=== PATIENT | male | born 1975 | race African-American/Black ===

== ENCOUNTER 2019-12-09 00:57 | Emergency (ER) | payer OTHER, SELFPAY ==
--- NOTE | ~2019-12-09 | CT_ITS ---
EXAMINATION: CT abdomen pelvis w con DATE: 12/09/2019 04:48 INDICATION: Left upper quadrant abdominal pain. Vomiting. TECHNIQUE: Computed tomography (CT) of the abdomen and pelvis was performed with 100 mL Omnipaque 350 intravenous contrast. Automated exposure control and iterative reconstruction technique were employe d. The dose-length product was 482.89 mGy-cm. COMPARISON: CT abdomen 03/04/2006 FINDINGS: The visualized portions of the lung bases demonstrate patchy airspace and groundglass opaci ties in the lower lobes and patchy groundglass opacities in right middle lobe and lingula. There are pneumatoceles in the lower lobes. No pleural effusion. The heart size is normal. There are coronary a rtery calcifications. No pericardial effusion. The liver, gallbladder, spleen, pancreas, adrenal glan ds, and kidneys are normal. There are no dilated loops of bowel. The appendix is normal. There are no pathologically enlarged lymph nodes. There is no free intraperitoneal fluid. The bones are unremarka ble. IMPRESSION: 1. Opacities in the inferior lungs, which may be atelectasis or atypical pneumonia such as COVID-19 p neumonia. Reviewed, dictated and finalized at location A. IMPRESSION: 1. Opacities in the inferior lungs, which may be atelectasis or atypical pneumo ana such as COVID-19 pneumonia.
[2019-12-09 01:03] VITALS: BP 128/92; PULSE 95; RESP 20; TEMP 36.5; O2SAT 96
[2019-12-09 02:20] VITALS: BP 148/82; PULSE 93; RESP 22; O2SAT 100
--- NOTE | 2019-12-09 02:54 | ED.NAVMDI ---
HPI - Nausea/Vomiting/Diarrhea General Chief complaint: Nausea/Vomiting/Diarrhea Stated complaint: N/V, WEAK Time Seen by Provider: 12/09/19 02:46 History of Present Illness HPI Narrative: Patient presents with his for 3 days of upper left abdominal pain nausea and vomiting. He has had chills but no documented fever. He has been unable to hold his medicines down including the antibiotics for his right great toe infection. He has type 2 diabetes and has not had DKA. 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 He has never had pancreatitis. He has no diarrhea. MD elicited complaint: nausea and vomiting Onset (ago): day(s) Description of vomiting: food contents Associated nausea: Yes Associated abdominal pain: Yes Related Data Home Medications Medication Instructions Recorded Confirmed aspirin 81 mg tablet,delayed 81 mg PO DAILY 06/27/19 release gabapentin 300 mg capsule 300 mg PO BID 06/27/19 losartan 25 mg tablet 25 mg PO DAILY 06/27/19 simvastatin 10 mg tablet 10 mg PO DAILY 06/27/19 hydrocodone 5 mg-acetaminophen 325 See Rx Instructions .ROUTE .COMPLEX 07/06/19 mg tablet cholecalciferol (vitamin D3) 1,250 See Rx Instructions PO .COMPLEX 10/24/19 mcg (50,000 unit) capsule linagliptin 5 mg tablet See Rx Instructions .ROUTE .COMPLEX 10/24/19 metformin 500 mg tablet See Rx Instructions .ROUTE .COMPLEX 10/24/19 Allergies Allergy/AdvReac Type Severity Reaction Status Date / Time No Known Allergies Allergy Verified 12/09/19 01:05 Review of Systems Review of Systems: Narrative: CONSTITUTIONAL: Denies fever, but has had chills. EYES: Denies visual changes, redness, or discharge. ENT: Denies rhinorrhea, congestion, sore throat, or otalgia. CARDIOVASCULAR: Denies chest pain, palpitations, or edema. RESPIRATORY: Denies cough or dyspnea. GASTROINTESTINAL: He has abdominal pain, nausea, vomiting, but not diarrhea. GENITOURINARY: Denies dysuria or hematuria. SKIN: Denies rash or itching. MUSCULOSKELETAL: Denies back pain, joint pain, or myalgia. He has a toe infection on the right great toe. NEUROLOGIC: Denies headache, numbness, or weakness. . [facility] Social History Social History Smoking status: Never smoker Second hand tobacco smoke exposure: No Alcohol intake: current Course Reevaluation(s) Reevaluation #1: Went in to tell the patient and his about the results of the CAT scan. He has had no further vomiting here. Told him that I gave him Reglan for nausea, ciprofloxacin for kidney infection, and tramadol for the pain. He said tramadol just does not work for me. I told him not to pick it up. Date: 12/09/19 Time: 05:49 Vital Signs Vital signs: Vital Signs Temperature 97.7 F 12/09/19 01:03 Pulse Rate 95 12/09/19 01:03 Respiratory Rate 20 12/09/19 01:03 Blood Pressure 128/92 H 12/09/19 01:03 Pulse Oximetry 96 12/09/19 01:03 Temperature 97.7 F 12/09/19 01:03 Pulse Rate 78 12/09/19 04:30 Respiratory Rate 18 12/09/19 04:30 Blood Pressure 117/72 12/09/19 04:30 Pulse Oximetry 98 12/09/19 04:30 MDM - Nausea/Vomiting/Diarrhea Lab Data Result diagrams: 12/09/19 03:20 12/09/19 04:09 Labs: Lab Results 12/09/19 12/09/19 12/09/19 Range/Units 03:20 04:09 04:09 WBC 4.8 (4.5-10.0) K/mm3 RBC 4.17 L (4.6-6.20) M/mm3 Hgb 12.3 L (14.0-18.0) g/dL Hct 36.7 L (42.0-52.0) % MCV 88.0 (80-100) fl MCH 29.5 (26-34) pg MCHC 33.5 (32-36) g/dl RDW 11.4 L (11.5-14.5) % Plt Count 212 (150-375) k/mm3 MPV 11.5 H (7.4-10.4) fl Immature Gran % (Auto) 0.4 (0-0.5) % Neut % (Auto) 79.8 H (45.5-73.1) % Lymph % (Auto) 11.9 L (18.3-44.2) % Nelson % (Auto) 7.7 (2.6-8.5) % Eos % (Auto) 0.0 (0-4.4) % Baso % (Auto) 0.2 (0.2-1.2) % Lymph # (Auto) 0.57 L (0.9-3.2) K/mm3 Nelson # (Auto) 0.4 (0.1-0.6
[2019-12-09] MEDS: ONDANSETRON INJ 4 MG/2 ML VIAL IV PUSH (03:17)
[2019-12-09] MEDS: SODIUM CHLORIDE 0.9% IV 1,000 ML 999 ML IV CONT ×2 (03:17→04:31)
[2019-12-09 04:19] LABS: Basophils Percent Auto 0.2 % (0.2-1.2); Hematocrit 36.7 % (42.0-52.0); Hemoglobin 12.3 g/dL (14.0-18.0); Immature Granulocyte Absolute 0.02 K/mm3 (0.00-0.031); Immature Granulocyte Percent A 0.4 % (0-0.5); Lymphocytes Absolute Auto 0.57 K/mm3 (0.9-3.2); Lymphocytes Percent Auto 11.9 % (18.3-44.2); Mean Corpuscular HGB Conc 33.5 g/dl (32-36); Mean Corpuscular Hemoglobin 29.5 pg (26-34); Mean Platelet Volume 11.5 fl (7.4-10.4); Monocytes Absolute Auto 0.4 K/mm3 (0.1-0.6); Monocytes Percent Auto 7.7 % (2.6-8.5); Neutrophils Absolute Auto 3.8 K/mm3 (1.3-6.7); Neutrophils Percent Auto 79.8 % (45.5-73.1); Platelet Count Result 212 k/mm3 (150-375); Red Blood Count 4.17 M/mm3 (4.6-6.20); Red Cell Distribution Width 11.4 % (11.5-14.5); White Blood Count 4.8 K/mm3 (4.5-10.0)
[2019-12-09 04:30] VITALS: BP 117/72; PULSE 78; RESP 18; O2SAT 98
[2019-12-09] MEDS: MORPHINE SULFATE 4 MG/ML INJ IV PUSH (04:31)
[2019-12-09 04:32] LABS: Alanine Aminotransferase 12 U/L (4-50); Albumin Level 4.3 g/dL (3.5-5.1); Alkaline Phosphatase 88 U/L (38-126); Aspartate Amino Transferase 20 U/L (17-59); Bilirubin,Total 0.8 mg/dL (0.2-1.3); Blood Urea Nitrogen 13 mg/dL (9-20); Calcium 8.9 mg/dL (8.4-10.2); Carbon Dioxide 26 mmol/L (22-30); Chloride 98 mmol/L (98-107); Estimated CRCL calculation 120 ml/min; Estimated Glomerular Filt Rate > 60; Glucose 273 mg/dL (75-110); Lipase 83 U/L (23-300); Potassium 3.7 mmol/L (3.4-5.0); Sodium 135 mmol/L (137-145)
[2019-12-09 04:33] LABS: Lactic Acid 0.9 mmol/L (0.7-2.1)
[2019-12-09 05:56] VITALS: BP 114/71; PULSE 61; RESP 18; O2SAT 98
== END 2019-12-09 05:57 | disposition home or self-care (01) ==
PROVIDERS: Emergency Provider Emergency Medicine; PCP Internal Medicine
DX: K52.9 Noninfective gastroenteritis and colitis, unspecified (principal); L08.9 Local infection of the skin and subcutaneous tissue, unspecified; E11.9 Type 2 diabetes mellitus without complications; Z79.84 Long term (current) use of oral hypoglycemic drugs; Z79.82 Long term (current) use of aspirin
CPT/HCPCS: 36415; 74177; 80053; 83605; 83690; 85025; 87040; 87077; 96361; 96374; 96375; 99284; J2270; J2405; J7030; Q9967